=== PATIENT | male | born 1990 | race Caucasian/White ===

== ENCOUNTER 2020-08-05 22:28 | Emergency (ER) | payer OTHER ==
[~2020-08-05] VITALS: Ht 185.4 cm; Wt 74.8 kg
[2020-08-05 22:41] VITALS: BP 140/74
[2020-08-05] MEDS ORDERED: SUPER THERAVIT1 EACH PO (22:45)
== END 2020-08-05 22:53 | disposition home or self-care (01) ==
LOC: M.ERS 22:28
DX: R20.2 Paresthesia of skin (principal); V49.49XA Driver injured in collision with other motor vehicles in traffic accident, initial encounter; Y93.89 Activity, other specified; Y92.89 Other specified places as the place of occurrence of the external cause; Y99.8 Other external cause status